=== PATIENT | male | born 1995 | race African-American/Black ===

== ENCOUNTER 2017-09-28 22:26 | Emergency (ER) | payer OTHER ==
[~2017-09-28] VITALS: Ht 170.2 cm; Wt 102.1 kg
[~2017-09-28 22:26] MED LIST: ABILIFY; ABILIFY30 MG PO; CATAPRES0.3 MG PO; CLONIDINE; CONCERTA; CONCERTA18 MG PO; CONCERTA36 MG PO; CONCERTA54 MG; DEPAKOTE; GEODON40 MG PO; GEODON60 MG PO; KEFLEX500 MG PO; LITHIUM CARBON300 M1 PO; LITHIUM CARBON300 MG PO; LITHIUM CARBON600 MG PO; MOTRIN800 MG PO; NORCO 10/3251 TABLET PO; NORCO 5/3251 TABLET PO; OXCARBAZEPINE; OXYCODONE HCL5 MG PO; PERCOCET 5/31 TABLET PO; PROMETHAZINE HC25 M1 PO; STRATERRA; STRATTERA40 MG PO; STRATTERA60 MG PO; TRILEPTAL600 MG PO; VALIUM5 MG PO; ZANTAC; ZANTAC150 MG PO; ZOFRAN ODT4 MG PO; ZOLOFT; ZOLOFT100 MG PO; ZOLOFT50 MG PO; ZYPREXA ZYDIS10 MG PO
[2017-09-28] MEDS ORDERED: PREDNISONE20 MG PO (23:34)
[2017-09-28] MEDS ORDERED: AMOXICILLIN500 MG PO (23:34)
[2017-09-28] MEDS ORDERED: NAPROSYN500 MG PO (23:34)
[2017-09-28] MEDS ORDERED: MUCINEX D ER T1 EACH PO (23:34)
[2017-09-28 23:39] VITALS: BP 146/85
== END 2017-09-28 23:41 | disposition home or self-care (01) ==
LOC: EME 22:26
DX: H66.93 Otitis media, unspecified, bilateral (principal); J02.9 Acute pharyngitis, unspecified
CPT/HCPCS: 99281; 99284; J7512

== ENCOUNTER 2017-12-26 12:23 | Emergency (ER) | payer OTHER ==
[~2017-12-26] VITALS: Ht 170.2 cm; Wt 100.0 kg
[~2017-12-26 12:23] MED LIST changes: +AMOXICILLIN500 MG PO; +MUCINEX D ER T1 EACH PO; +NAPROSYN500 MG PO; +PREDNISONE20 MG PO
[2017-12-26] MEDS ORDERED: MOTRIN600 MG PO (13:53)
[2017-12-26 14:09] VITALS: BP 120/67
== END 2017-12-26 14:10 | disposition home or self-care (01) ==
LOC: EME 12:23
DX: S86.912A Strain of unspecified muscle(s) and tendon(s) at lower leg level, left leg, initial encounter (principal); W18.30XA Fall on same level, unspecified, initial encounter; E11.9 Type 2 diabetes mellitus without complications; F20.9 Schizophrenia, unspecified; F90.9 Attention-deficit hyperactivity disorder, unspecified type; K74.60 Unspecified cirrhosis of liver
CPT/HCPCS: 73564; 99281; 99284